=== PATIENT | male | born 1960 | race Caucasian/White ===

== ENCOUNTER 2020-05-23 16:54 | Outpatient (REF) | payer MEDICAID, SELFPAY ==
--- NOTE | 2020-05-23 16:00 | SKI_PTH ---
PATIENT: DIEUDONNE ENRIQUEZ LOC: [facility] U#:[id number] AGE/SX: 59/M ROOM: RE05/23/[address]: Keegan Pereyra : 1960 BED: DIS: 05/23/2020 SPEC #: [id number] RECD: 05/26/20 12:18 STATUS: OLENA REBlaise #: [id number] SANCHEZ: 05/23/20 16:[address]: Keegan Pereyra DEPT: Surgical Specimen RECD BY: Priscilla Fisher ENTERED: 05/26/20 12:18 SP TYPE: PILY CAMARENA DR: Veda Julian Tissues: 1 - SKIN BIOPSY(SHAVE/PUNCH) Procedures: SKIN LEVEL 4 Comments: [id number]
== END 2020-05-23 17:14 ==
LOC: NCHCN 16:54
PROVIDERS: PCP Nurse Practitioner; Visit Provider Physician Assistant
DX: L57.0 Actinic keratosis (principal)
CPT/HCPCS: 88305